=== PATIENT | female | born 1955 | race Caucasian/White ===

== ENCOUNTER 2023-02-17 20:37 | Emergency (ER) | payer OTHER, MEDICARE ==
[~2023-02-17] VITALS: Ht 157.5 cm; Wt 68.0 kg
[2023-02-17 21:00] VITALS: BP_SYST 180
--- NOTE | 2023-02-17 21:15 | NUR ---
Placed in room 4 . Placed on tip stitcher, blood pressure machine and pulse oximeter. To gown for exam. Side rails up. Report given to VASU RAMIREZ(REG).
--- NOTE | 2023-02-17 21:20 | NUR ---
Patient arrived to ED 4 for c/o chest, abdominal pain radiating to back. Vital signs taken. Placed on lining strap closer. EKG done. Patient said this chest pain episode started at 5 pm and she has a clinical care coordinator she sees where stress test and echocardiogram was done. Labor Service Representative told her in past that patient had extra heart beat, but everything else was "normal." Respiration even and unlabored. No shortness of breath. Chest pain 03/11. aware of situation and MSE patient.
--- NOTE | 2023-02-17 21:43 | NUR ---
ER at bedside examining patient.
[2023-02-17 21:49] LABS: BASOPHILS # (AUTO) 0.1 K/uL (0.0-0.2); BASOPHILS % (AUTO) 0.7 % (0.0-2.0); EOSINOPHILS # (AUTO) 0.1 K/uL (0.0-0.4); EOSINOPHILS % (AUTO) 1.2 % (0.0-4.0); HEMATOCRIT 40.7 % (36-48); HEMOGLOBIN 13.6 g/dL (12.0-16.0); LYMPHOCYTES # (AUTO) 1.9 K/uL (1.0-5.5); LYMPHOCYTES % (AUTO) 24.5 % (20.5-51.5); MEAN CORPUSCULAR HEMOGLOBIN 29 pg (27-31); MEAN CORPUSCULAR HGB CONC 34 % (32-36); MEAN CORPUSCULAR VOLUME 85 fL (79.0-98.0); MONOCYTES # (AUTO) 0.5 K/uL (0.0-1.0); MONOCYTES % (AUTO) 6.5 % (1.7-9.3); NEUTROPHILS # (AUTO) 5.4 K/uL (1.8-7.7); NEUTROPHILS % (AUTO) 67.1 % (40.0-70.0); PLATELET COUNT (AUTO) 261 K/uL (130-430); RED BLOOD CELL COUNT(AUTO) 4.79 MIL/uL (4.2-6.2); RED CELL DISTRIBUTION WIDTH 13.7 % (9.0-15.0)
[2023-02-17 22:02] LABS: ALANINE AMINOTRANSFERASE 17 U/L (12-78); ALBUMIN 3.3 g/dL (3.4-4.8); ANION GAP 6 (5-15); ASPARTATE AMINOTRANSFERASE 18 U/L (10-37); CHLORIDE 103 mmol/L (98-107); CREATININE 0.68 mg/dL (0.55-1.30); GFR AFRICAN AMERICAN 111 mL/min (>90); GLUCOSE 121 mg/dL (70-99); TOTAL BILIRUBIN 0.2 mg/dL (0.0-1.0); UREA NITROGEN, BLOOD 11 mg/dL (8-21)
[2023-02-17 22:04] LABS: LIPASE 79 U/L (73-393)
[2023-02-17 23:13] LABS: BILIRUBIN,URINE NEGATIVE (NEGATIVE); BLOOD, URINE NEGATIVE (NEGATIVE); CLARITY/URINE CLEAR (CLEAR); COLOR,URINE YELLOW (YELLOW); GLUCOSE,URINE NEGATIVE (NEGATIVE); KETONES,URINE NEGATIVE (NEGATIVE); LEUKOCYTE ESTERASE ,URINE NEGATIVE (NEGATIVE); NITRITE, URINE NEGATIVE (NEGATIVE); PROTEIN URINE NEGATIVE (NEGATIVE); UROBILINOGEN,URINE 0.2 (0.2-1.0)
[2023-02-18] MEDS ORDERED: IBUPROFEN 600 MG TABLET PO ONE (00:15)
--- NOTE | 2023-02-18 00:42 | NUR ---
Patient given written and verbal discharge instructions and verbalizes understanding. ER MD discussed with patient the results and treatment provided. Patient in stable condition. ID arm band removed. Rx of otc meds given. Patient educated on pain management and to follow up with PMD. Pain Scale . Opportunity for questions provided and answered. Medication side effect fact sheet provided.
[2023-02-18 00:43] VITALS: BP_SYST 134
== END 2023-02-18 00:43 | disposition home or self-care (01) ==
LOC: SED 20:37
DX: M54.50 Low back pain, unspecified (principal); R10.11 Right upper quadrant pain; R10.12 Left upper quadrant pain; E11.9 Type 2 diabetes mellitus without complications; Z79.899 Other long term (current) drug therapy
CPT/HCPCS: 36415; 71045; 80053; 81003; 83690; 84484; 85025; 93005; 99285